=== PATIENT | female | born 1990 | race Caucasian/White ===

== ENCOUNTER 2018-09-11 10:40 | Inpatient (IN) | payer MEDICAID ==
[2018-09-11] MEDS ORDERED: OXYTOCIN 30 UNITS/LR 500 ML IV (11:30)
[2018-09-11] MEDS ORDERED: IBUPROFEN 600 MG TAB PO (11:30)
[2018-09-11] MEDS ORDERED: CARBOPROST 250 MCG INJ IM (11:30)
[2018-09-11] MEDS ORDERED: LIDOCAINE 1% (MPF) 30 ML INJ INJ (11:30)
[2018-09-11] MEDS ORDERED: MISOPROSTOL 200 MCG TAB PR (11:30)
[2018-09-11] MEDS ORDERED: BUTORPHANOL 2 MG INJ IV (11:30)
[2018-09-11] MEDS ORDERED: METHYLERGONOVINE 0.2 MG INJ IM (11:30)
[2018-09-11] MEDS: LACTATED RINGER'S 1,000 ML IV ×3 (11:36→20:15)
[2018-09-11 11:53] LABS: ADD MAN DIFF? NO
[2018-09-11 11:57] LABS: BASOPHILS % 0.2 % (0.0-2.0); EOSINOPHILS # 0.1 10^3/ul (0.0-0.5); EOSINOPHILS % 0.9 % (0.0-7.0); HEMOGLOBIN 12.3 g/dl (12.0-16.0); LYMPHOCYTES # 1.7 10^3/ul (0.8-2.9); LYMPHOCYTES % 16.1 % (15.0-51.0); MEAN CORPUSCULAR HEMOGLOBIN 28.5 pg (29.0-33.0); MEAN CORPUSCULAR HGB CONC 33.2 g/dl (32.0-37.0); MEAN CORPUSCULAR VOLUME 85.8 fl (82.0-101.0); MEAN PLATELET VOLUME 10.2 fl (7.4-10.4); MONOCYTE # 0.8 10^3/ul (0.3-0.9); MONOCYTES % 7.6 % (0.0-11.0); NEUTROPHILS % 74.8 % (39.0-77.0); PLATELET COUNT 308 10^3/UL (140-415); RED BLOOD COUNT 4.31 10^6/ul (4.20-5.40); RED CELL DISTRIBUTION WIDTH 14.4 % (11.5-14.5)
[2018-09-11 11:57] LABS: WHITE BLOOD COUNT 10.7 10^3/ul (4.8-10.8)
[2018-09-11 12:16] LABS: INR 0.87; PROTIME 11.9 Sec (11.9-14.9); PT RATIO 0.9
[2018-09-11 12:17] LABS: PARTIAL THROMBOPLASTIN TIME 24.7 Sec (23.0-35.0)
[2018-09-11] MEDS: OXYTOCIN 30 UNITS/LR 500 ML IV (13:47)
[2018-09-11 15:14] LABS: RAPID PLASMA REAGIN NONREACTIVE (NR)
[2018-09-11] MEDS ORDERED: NALOXONE (0.4 MG/ML) INJ IV (20:30)
[2018-09-11] MEDS ORDERED: FENTAnyl 2MCG/ML-ROPIV 0.2% 100 ML (20:31)
[2018-09-12] MEDS: LACTATED RINGER'S 1,000 ML IV ×5 (02:59→18:26)
[2018-09-12] MEDS: FENTAnyl 2MCG/ML-ROPIV 0.2% 100 ML BAG EPI ×3 (04:24→17:55)
[2018-09-12] MEDS: OXYTOCIN 30 UNITS/LR 500 ML IV ×2 (19:41→19:42)
[2018-09-12] MEDS: KETOROLAC 30 MG INJ IV (19:54)
[2018-09-12] MEDS: MINERAL OIL LIGHT 10 ML VIAL TOP (20:30)
[2018-09-12] MEDS: LACTATED RINGER'S 1,000 ML IV* (21:46)
[2018-09-12] MEDS ORDERED: DIBUCAINE 1% 30 GM OINT TOP (22:00)
[2018-09-12] MEDS ORDERED: MISOPROSTOL 200 MCG TAB PR (22:00)
[2018-09-12] MEDS ORDERED: HYDROCODONE/APAP (5/325) TAB PO (22:00)
[2018-09-12] MEDS ORDERED: ZOLPIDEM 5 MG TAB PO (22:00)
[2018-09-12] MEDS ORDERED: CARBOPROST 250 MCG INJ IM (22:00)
[2018-09-12] MEDS ORDERED: METHYLERGONOVINE 0.2 MG INJ IM (22:00)
[2018-09-12] MEDS: BENZOCAINE 20% 56 ML SPRAY TOP (22:19)
[2018-09-12] MEDS: WITCH HAZEL/GLYCERIN PAD PR (22:19)
[2018-09-12] MEDS: LANOLIN HPA 1 PKT TOP (22:19)
[2018-09-12] MEDS: HYDROCODONE/APAP (5/325) TAB PO (22:19)
[2018-09-13] MEDS: OXYTOCIN 30 UNITS/LR 500 ML IV (00:26)
[2018-09-13] MEDS: CEPHALEXIN 500 MG CAP PO ×5 (00:27→23:42)
[2018-09-13] MEDS: IBUPROFEN 600 MG TAB PO ×5 (00:27→23:42)
[2018-09-13] MEDS: HYDROCODONE/APAP (5/325) TAB PO ×3 (03:43→20:58)
[2018-09-13] MEDS: LACTATED RINGER'S 1,000 ML IV* (04:15)
[2018-09-13 08:26] LABS: ADD MAN DIFF? NO
[2018-09-13] MEDS: SENNA/DOCUSATE NA (8.6MG/50MG) TAB PO ×2 (08:27→20:35)
[2018-09-13] MEDS: MAGNESIUM HYDROXIDE 30ML CUP PO ×2 (08:27→20:35)
[2018-09-13 08:39] LABS: BASOPHILS % 0.1 % (0.0-2.0); EOSINOPHILS # 0.1 10^3/ul (0.0-0.5); EOSINOPHILS % 0.7 % (0.0-7.0); HEMATOCRIT 31.7 % (37.0-47.0); HEMOGLOBIN 10.6 g/dl (12.0-16.0); LYMPHOCYTES # 1.9 10^3/ul (0.8-2.9); LYMPHOCYTES % 12.4 % (15.0-51.0); MEAN CORPUSCULAR HEMOGLOBIN 29.2 pg (29.0-33.0); MEAN CORPUSCULAR HGB CONC 33.4 g/dl (32.0-37.0); MEAN CORPUSCULAR VOLUME 87.3 fl (82.0-101.0); MEAN PLATELET VOLUME 10.5 fl (7.4-10.4); MONOCYTE # 1.2 10^3/ul (0.3-0.9); MONOCYTES % 7.9 % (0.0-11.0); NEUTROPHIL # 11.9 10^3/ul (1.6-7.5); NEUTROPHILS % 78.4 % (39.0-77.0); PLATELET COUNT 236 10^3/UL (140-415); RED BLOOD COUNT 3.63 10^6/ul (4.20-5.40); RED CELL DISTRIBUTION WIDTH 14.6 % (11.5-14.5)
[2018-09-13 08:39] LABS: WHITE BLOOD COUNT 15.2 10^3/ul (4.8-10.8)
[2018-09-13 13:32] LABS: HEPATITIS B SURFACE ANTIBODY NEGATIVE (NEGATIVE)
[2018-09-14] MEDS: BENZOCAINE 20% 56 ML SPRAY TOP (01:15)
[2018-09-14] MEDS: HYDROCODONE/APAP (5/325) TAB PO (04:08)
[2018-09-14] MEDS: CEPHALEXIN 500 MG CAP PO ×2 (05:45→12:35)
[2018-09-14] MEDS: IBUPROFEN 600 MG TAB PO ×2 (05:45→12:34)
[2018-09-14] MEDS: MEASLES,MUMPS,RUBELLA VACCINE INJ SC* (09:00)
[2018-09-14] MEDS: VARICELLA VACCINE LIVE/PF 1,350 UNIT/0.5 ML ML SC* (09:00)
[2018-09-14] MEDS: SENNA/DOCUSATE NA (8.6MG/50MG) TAB PO (09:00)
[2018-09-14] MEDS: DIPHTH/TET/ACEL PERTUSS (ADULT) 0.5 ML VIAL IM* (09:00)
[2018-09-14] MEDS: MAGNESIUM HYDROXIDE 30ML CUP PO (09:00)
== END 2018-09-14 14:15 | disposition home or self-care (01) | DRG 807 ==
LOC: PP1 09-12 21:40 → L-D 10:40
PROVIDERS: Obstetrics & Gynecology
PROC: 3E033VJ Introduction of Other Hormone into Peripheral Vein, Percutaneous Approach (ICD-10-PCS; 2018-09-11 10:00)
DX: O69.81X0 Labor and delivery complicated by cord around neck, without compression, not applicable or unspecified (principal); O70.0 First degree perineal laceration during delivery; Z37.0 Single live birth; Z3A.40 40 weeks gestation of pregnancy
CPT/HCPCS: 62319; 76816; 85025; 85610; 85730; 86592; 86706; 86850; 86900; 86901; 99464